=== PATIENT | female | born 1970 | race Caucasian/White ===

== ENCOUNTER 2025-04-27 13:26 | Emergency (ER) | payer OTHER ==
[2025-04-27] MEDS: diphenhydrAMINE 50 MG/ML SDV IM ONE (13:54)
[2025-04-27] MEDS: methylPREDNISolone Sodium Succinate 40 MG/1 ML SDV IM ONE (13:56)
== END 2025-04-27 14:36 | disposition home or self-care (01) ==
LOC: CC.ED 13:26
DX: T78.49XA Other allergy, initial encounter (principal); E78.00 Pure hypercholesterolemia, unspecified; I10 Essential (primary) hypertension; F17.200 Nicotine dependence, unspecified, uncomplicated
CPT/HCPCS: 96372; 99284; J1200; J2919